=== PATIENT | female | born 1985 | race Caucasian/White ===

== ENCOUNTER 2016-12-17 07:51 | Emergency (ER) | payer SELFPAY ==
[2016-12-17 08:55] LABS: BASOPHIL % 0.1 % (0-2)
[2016-12-17 08:57] LABS: CALCIUM 8.5 mg/dL (8.5-10.1); CARBON DIOXIDE 26.1 mmol/L (21-32); CHLORIDE SERUM 104 mmol/L (98-107); CREATININE SERUM 0.7 mg/dL (0.6-1.0); GFR1 > 60 mL/min; GLUCOSE SERUM 105 mg/dL (74-106); POTASSIUM SERUM 4.4 mmol/L (3.5-5.1); SODIUM SERUM 137 mmol/L (136-145)
[2016-12-17 09:01] LABS: ALKALINE PHOSPHATASE 56 U/L (46-116); ALT/SGPT 20 U/L (14-59); AMYLASE 51 U/L (25-115); AST/SGOT 16 U/L (15-37); BILIRUBIN TOTAL 0.31 mg/dL (0.20-1.00); LIPASE 160 IU/L (73-393); PLATELET COUNT 220 x10^3mcL (130-400); RED CELL DISTRIBUTION WIDTH 13.3 % (11.5-14.5); TOTAL PROTEIN, SERUM 7.2 g/dL (6.4-8.2)
[2016-12-17 09:03] LABS: ALBUMIN 3.3 g/dL (3.4-5.0)
[2016-12-17 09:14] LABS: microscopic required? YES; urine erythrocyte 2+ (NEGATIVE)
[2016-12-17 11:25] VITALS: BP 125/73
== END 2016-12-17 11:25 | disposition home or self-care (01) ==
LOC: ED 07:51
PROVIDERS: Emergency Medicine
DX: R10.84 Generalized abdominal pain (principal); R19.7 Diarrhea, unspecified; R11.0 Nausea
CPT/HCPCS: 83880; J2270; J2405; J3490; J7030